=== PATIENT | female | born 1990 | race Caucasian/White ===

== ENCOUNTER 2016-09-08 16:21 | Emergency (ER) | payer MEDICAID, OTHER ==
[~2016-09-08] VITALS: Wt 108.5 kg
[2016-09-08] MEDS ORDERED: ONDANSETRON 4 MG INJ IV STA (18:00)
[2016-09-08] MEDS ORDERED: SOD CHLORIDE 0.9% 1,000 ML IV STA (18:00)
[2016-09-08] MEDS ORDERED: ACETAMINOPHEN 325 MG TAB PO STA (18:00)
[2016-09-08 18:30] LABS: ADD SCAN DIFF NO
[2016-09-08 18:32] LABS: BASOPHILS % 0.1 % (0.0-2.0); EOSINOPHILS % 0.1 % (0.0-7.0); HEMATOCRIT 40.2 % (37.0-47.0); HEMOGLOBIN 13.2 g/dl (12.0-16.0); LYMPHOCYTES # 0.7 10^3/ul (0.8-2.9); LYMPHOCYTES % 5.9 % (15.0-51.0); MEAN CORPUSCULAR HEMOGLOBIN 27.1 pg (29.0-33.0); MEAN CORPUSCULAR HGB CONC 32.8 g/dl (32.0-37.0); MEAN CORPUSCULAR VOLUME 82.5 fl (82.0-101.0); MEAN PLATELET VOLUME 9.2 fl (7.4-10.4); MONOCYTE # 0.4 10^3/ul (0.3-0.9); MONOCYTES % 3.8 % (0.0-11.0); NEUTROPHIL # 10.3 10^3/ul (1.6-7.5); NEUTROPHILS % 89.8 % (39.0-77.0); PLATELET COUNT 306 10^3/UL (140-415); RED BLOOD COUNT 4.87 10^6/ul (4.20-5.40); RED CELL DISTRIBUTION WIDTH 12.9 % (11.5-14.5); WHITE BLOOD COUNT 11.5 10^3/ul (4.8-10.8)
[2016-09-08 18:41] LABS: ADD UMIC YES; URINE BILIRUBIN (Dip) 1+ (NEGATIVE); URINE BLOOD (Dip) TRACE (NEGATIVE); URINE COLOR YELLOW (YELLOW); URINE GLUCOSE (Dip) NEGATIVE (NEGATIVE); URINE KETONES (Dip) 40 (NEGATIVE); URINE LEUKOCYTE ESTERASE (Dip) NEGATIVE (NEGATIVE); URINE NITRITE (Dip) NEGATIVE (NEGATIVE); URINE TOTAL PROTEIN (Dip) TRACE (NEGATIVE); URINE UROBILINOGEN (Dip) 0.2 E.U./dL (0.1-1.0)
--- NOTE | 2016-09-08 18:46 | RADRPT ---
PROCEDURE: Real Time Sonogram. 09/08/20166:18 PM CLINICAL INDICATION: Abdominal pain. TECHNIQUE: This procedure was performed on a high-resolution real time Unit using a endovaginal pr obe. COMPARISON: None FINDINGS: Presentation: Vertex. Cervical Length: Not evaluated.Placental Location: Posterior grade 1.Placental Previa: No. Body limb and cardiac motion: Gas.Heart rate: 192 beats per minute. anatomy is not evaluated. sex: Indeterminate. Amniotic fluid volume:Normal. Measured data: BPD:4.5 cm19 weeks 5 days plus or minus 1 week 5 days. HC:17.01 cm19 weeks 4 days plus or minus 1 week 3 days. AC:13.9 cm19 weeks 2 days plus or minus 2 weeks air days. FC:3.1 cm19 weeks 4 days plus or minus 1 week 6 days. AUA:19 weeks 4 daysplus or minus 2 weeks air days. RAMIREZ (AUA):01/29/2017 Serial scan estimated menstrual age: Not calculated. weight: 923 g plus or minus 44 g. Endovaginal imaging utilized:Yes Additional findings:None IMPRESSION: See above RPTAT:AAJJ Physician Mary Date Time Electronically viewed and signed by Physician Mary on 09/08/2016 18:46 /
[2016-09-08 18:54] LABS: ALBUMIN 3.9 g/dl (3.3-4.9)
[2016-09-08 18:55] LABS: POTASSIUM 3.7 mmol/L (3.5-5.1)
[2016-09-08 18:57] LABS: ALBUMIN/GLOBULIN RATIO 1.08; BILIRUBIN,INDIRECT 0.5 mg/dl (0-1.1); BILIRUBIN,TOTAL 0.5 mg/dl (0.2-1.3); CALCIUM 9.2 mg/dl (8.4-10.2); CREATININE 0.61 mg/dl (0.44-1.00); TOTAL PROTEIN 7.5 g/dl (6.1-8.1)
[2016-09-08 19:01] LABS: BACTERIA,URINE MODERATE; ICTOTEST NEGATIVE (NEGATIVE); SQUAMOUS EPITHELIAL CELL,UR MODERATE; URINE RBCS 0-2 /HPF ([, 0])
[2016-09-08] MEDS ORDERED: ONDA4TAB14 PO (19:37)
--- NOTE | 2016-09-08 19:39 | ERD ---
ER Documentation Chief Complaint Date/Time DATE: 09/08/16 TIME: 19:37 Chief Complaint ABD PAIN WITH N/V 16 WEEKS X 2 DAYS HPI This is a 26-year-old female who is 4-5 months she is complaining of 1 day of nausea vomiting and diarrhea with chills and subjective fever at home. There is no blood in her vomit or diarrhea. The vomit is nonbilious. She has no pelvic cramps but has occasional diffuse abdominal cramps before she has diarrhea or vomiting. No known toxic exposures or bad food or others at the same symptoms at home. ROS All systems reviewed and are negative except as per history of present illness. Medications Home Meds Active Scripts Ondansetron (Ondansetron Odt) 4 Mg Tab.rapdis, 4 MG PO Q6H Y for NAUSEA AND/OR VOMITING, #10 TAB Prov:JARROD CLOUD DO 09/08/16 Allergies Allergies: Coded Allergies: No Known Allergy (Unverified , 09/08/16) PMhx/Soc History of Surgery: No Anesthesia Reaction: No Hx Neurological Disorder: No Hx Respiratory Disorders: No Hx Cardiac Disorders: No Hx Psychiatric Problems: No Hx Miscellaneous Medical Probl: No Hx Alcohol Use: No Hx Substance Use: No Hx Tobacco Use: No FmHx Family History: No coronary disease Physical Exam Vitals Vital Signs Date Time Temp Pulse Resp B/P Pulse Ox O2 Delivery O2 Flow Rate FiO2 09/08/16 16:43 102.2 140 18 130/69 99 Physical Exam Const: Well-developed, well-nourished Head: Atraumatic, normocephalic Eyes: Normal Conjunctiva, PERRLA, EOMI, normal sclera, no nystagmus ENT: Normal External Ears, Nose and Mouth, moist mucus membranes. Neck: Full range of motion. No meningismus, no lymphadenopathy. Resp: Clear to auscultation bilaterally, no wheezing, rhonchi, rales Cardio: Regular rate and rhythm, no murmurs, S1 S2 present Abd: Soft, very mild diffuse tenderness, gravid no pelvic tenderness, non distended. Normal bowel sounds, no guarding or rebound, no pulsitile abdominal masses or bruits Skin: No petechiae or rashes, no ecchymosis , no maculopapular rash Back: No midline or flank tenderness Ext: No cyanosis, or edema, FROM x 4, normal inspection, neurovascularly intact x 4 Neur: Awake and alert, STR 5/5 x 4, sensation intact x 4, no focal findings, cerebellum intact Psych: Normal Mood and Affect Result Diagram: 09/08/16180109/08/161801 Results 24 hrs Laboratory Tests Test 09/08/16 18:02 White Blood Count 11.510^3/ul Red Blood Count 4.8710^6/ul Hemoglobin 13.2g/dl Hematocrit 40.2% Mean Corpuscular Volume 82.5fl Mean Corpuscular Hemoglobin 27.1pg Mean Corpuscular Hemoglobin Concent 32.8g/dl Red Cell Distribution Width 12.9% Platelet Count 20293^3/UL Mean Platelet Volume 9.2fl Neutrophils % 89.8% Lymphocytes % 5.9% Monocytes % 3.8% Eosinophils % 0.1% Basophils % 0.1% Nucleated Red Blood Cells % 0.0/100WBC Neutrophils # 10.310^3/ul Lymphocytes # 0.710^3/ul Monocytes # 0.410^3/ul Eosinophils # 0.010^3/ul Basophils # 0.010^3/ul Nucleated Red Blood Cells # 0.010^3/ul Urine Color YELLOW Urine Clarity SLIGHTLY CLOUDY Urine pH 6.0 Urine Specific [place] >=1.030 Urine Ketones 40 Urine Nitrite NEGATIVE Urine Bilirubin 1+ Urine Ictotest NEGATIVE Urine Urobilinogen 0.2 E.U./dL Urine Leukocyte Esterase NEGATIVE Urine Microscopic RBC 0-2/HPF Urine Microscopic WBC 2-5/HPF Urine Squamous Epithelial Cells MODERATE Urine Bacteria MODERATE Urine Hemoglobin TRACE Urine Glucose NEGATIVE% Urine Total Protein TRACE Sodium Level 135mmol/L Potassium Level 3.7mmol/L Chloride Level 98mmol/L Carbon Dioxide Level 23mmol/L Anion Gap 18 Blood Urea Nitrogen 7mg/dl Creatinine 0.61mg/dl Glucose Level 115mg/dl Calcium Level 9.2mg/dl Total Bilirubin 0.5mg/dl Direct Bilirubin 0.00mg/dl Indirect Bilirubin 0.5mg/dl Aspartate Amino Transf (AST/SGOT) 23IU/L Alanine Aminotransferase (ALT/SGPT) 45IU/L Alkaline Phosphatase 73IU/L Total Protein 7.5g/dl Albumin 3.9g/dl Globulin 3.60g/dl Albumin/Globulin Ratio 1.08 Current Medications Medications (Trade) Dose Ordered Sig/Neetu Route PRN Reason Start Time Stop Time Status Last Admin Dose Admin Sodium Chloride (NS) 1,000 ml @ 1,000 mls/hr Q1H STAT IV 09/08/16 18:00 09/08/16 18:59 DC 09/08/16 18:37 Ondansetron HCl (Zofran Inj) 4 mg ONCE STAT IV 09/08/16 18:00 09/08/16 18:03 DC 09/08/16 18:37 Acetaminophen (Tylenol Tab) 650 mg ONCE STAT PO 09/08/16 18:00 09/08/16 18:03 DC 09/08/16 18:38 Procedures/MDM PROCEDURE: Real Time Sonogram. 09/08/20166:18 PM CLINICAL INDICATION: Abdominal pain. TECHNIQUE: This procedure was performed on a high-resolution real time Unit using a endovaginal probe. COMPARISON: None FINDINGS: Presentation: Vertex. Cervical Length: Not evaluated. Placental Location: Posterior grade 1. Placental Previa: No. Body limb and cardiac motion: Gas. Heart rate: 192 beats per minute. anatomy is not evaluated. sex: Indeterminate. Amniotic fluid volume: Normal. Measured data: BPD: 4.5 cm 19 weeks 5 days plus or minus 1 week 5 days. HC: 17.01 cm 19 weeks 4 days plus or minus 1 week 3 days. AC: 13.9 cm 19 weeks 2 days plus or minus 2 weeks air days. FC: 3.1 cm 19 weeks 4 days plus or minus 1 week 6 days. AUA: 19 weeks 4 days plus or minus 2 weeks air days. RAMIREZ (AUA): 01/29/2017 Serial scan estimated menstrual age: Not calculated. weight: 923 g plus or minus 44 g. Endovaginal imaging utilized:Yes Additional findings:None IMPRESSION: See above RPTAT:AAJJ Physician Mary Date Time Electronically viewed and signed by Ovidio Gutierrez Physician on 09/08/2016 18:46 JM/ CC: JARROD CLOUD DO Patient feels much better. Feels she has a gastroenteritis likely from viral exposure or bad food. Gave her strict warning signs to return in home diet care will provide her with Zofran Departure Diagnosis: Primary Impression: Vomiting and diarrhea Condition: Stable Patient Instructions: Self-Care for Vomiting and Diarrhea JARROD CLOUD DO September 08, 2016 19:39
[2016-09-08 19:40] VITALS: BP 120/58; PULSE 106; RESP 18; TEMP 98.7
== END 2016-09-08 19:47 | disposition home or self-care (01) ==
LOC: FTE 16:21
DX: O21.9 Vomiting of pregnancy, unspecified (principal); O99.89 Other specified diseases and conditions complicating pregnancy, childbirth and the puerperium; R19.7 Diarrhea, unspecified; Z3A.19 19 weeks gestation of pregnancy
CPT/HCPCS: 36415; 76805; 80053; 81001; 85025; 96374; J2405; J7030; Z7502; Z7610; 81003